=== PATIENT | female | born 2000 | race Caucasian/White ===

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

== ENCOUNTER 2022-05-01 19:30 | Emergency (ER) | payer BC, OTHER ==
[2022-05-01 19:39] VITALS: BP 101/64; PULSE 89; RESP 18; TEMP 98.9; BMI 20.5
== END 2022-05-01 21:10 | disposition home or self-care (01) ==
LOC: FER 19:30
DX: B34.9 Viral infection, unspecified (principal)
CPT/HCPCS: 0241U-QW; 99283-25

== ENCOUNTER 2022-07-26 19:58 | Day surgery (SDC) | payer BC ==
[2022-07-26 21:41] LABS: EPI CELLS 9 /uL (0-25.1); HYALINE CASTS 1 /uL (0-3.1); PH,URINE 5.5 (5.0-8.0); URINE APPEARANCE CLEAR; URINE BACTERIA 201 /uL (0-1359); URINE BILIRUBIN NEGATIVE (NEGATIVE); URINE COLOR YELLOW; URINE GLUCOSE (UA) NEGATIVE (NEGATIVE); URINE KETONE 1+ (NEGATIVE); URINE LEUK ESTERASE 1+ (NEGATIVE); URINE NITRITE NEGATIVE (NEGATIVE); URINE PROTEIN 1+ (NEGATIVE); URINE RBC 1015 /uL (0-23.9); URINE UROBILINOGEN 0.2 mg/dL (0.2-1.0); URINE WBC 430 /uL (0-25.8)
[2022-07-26 21:46] LABS: BASO % 0.6 % (0-2.0); EOS % 0.5 % (0-4.5); HEMOGLOBIN 13.1 GM/dL (10.7-15.3); LYMPH % 20.4 % (8-40); MCH 28.1 pg (25.7-33.7); MCHC 32.9 g/dl (32.0-36.0); MEAN CELL VOLUME 85.4 fl (80-96); MEAN PLT VOLUME 8.7 fl (7.5-11.1); MONO % 5.7 % (3.8-10.2); NEUT % 72.8 % (42.8-82.8); PLATELET COUNT 302 10^3/uL (134-434); RBC 4.68 M/mm3 (3.60-5.2); WHITE BLOOD COUNT 11.3 K/mm3 (4.0-10.0)
[2022-07-26 21:47] LABS: INR 0.98 (0.83-1.09); PROTHROMBIN TIME (PATIENT) 11.4 SEC (9.7-13.0)
[2022-07-26 21:49] LABS: ACTIVATED PTT 29.8 SECONDS (25.2-36.5)
[2022-07-26] MEDS ORDERED: SODIUM CHLORIDE 0.9% 500 ML INFUS.BAG IV ONE (21:55)
[2022-07-26 22:04] LABS: CHLORIDE 104 mmol/L (98-107); SODIUM 137 mmol/L (136-145)
[2022-07-26 22:06] LABS: BLOOD UREA NITROGEN 17.3 mg/dL (7-18); CALCIUM 9.4 mg/dL (8.5-10.1)
[2022-07-26 22:07] LABS: ALBUMIN 4.6 g/dl (3.4-5.0); ANION GAP 8 MMOL/L (8-16); CO2 25 mmol/L (21-32); GLUCOSE,RANDOM 78 mg/dL (74-106)
[2022-07-26] MEDS ORDERED: CEFTRIAXONE 1 GM in DEXTROSE 5%-WATER - 50 ML IVPB ONE (22:07)
[2022-07-26] MEDS ORDERED: CEFTRIAXONE 1 GM/50 ML BAG ONE (22:08)
[2022-07-26 22:10] LABS: CREATININE 0.8 mg/dL (0.55-1.3); SGOT/AST 14 U/L (15-37); SGPT/ALT 21 U/L (13-61)
[2022-07-26 22:11] LABS: BILIRUBIN,TOTAL 0.4 mg/dL (0.2-1)
[2022-07-26 22:12] LABS: TOT PROT 8.3 g/dl (6.4-8.2)
[2022-07-26 22:13] LABS: SYPHILIS W/ RPR CONF NON-REACTIVE (NONREACTIVE)
[2022-07-26 22:13] LABS: ALK PHOS 64 U/L (45-117)
[2022-07-26] MEDS ORDERED: KETOROLAC TROMETHAMINE 30 MG/1 ML VIAL IVPUSH ONE (22:26)
[2022-07-26 22:43] LABS: HIV INTERPRETATION NEGATIVE (NEGATIVE)
[2022-07-27] MEDS: SODIUM CHLORIDE 1,000 ML IV SCH (00:22)
[2022-07-27] MEDS ORDERED: ACETAMINOPHEN 325 MG TABLET (FP) PO PRN (01:32)
[2022-07-27] MEDS ORDERED: ONDANSETRON 4 MG/2 ML VIAL IVPUSH PRN ×2 (01:35→09:13)
[2022-07-27 03:59] VITALS: BMI 20.1
[2022-07-27 08:49] LABS: BASO % 0.9 % (0-2.0); EOS % 1.7 % (0-4.5); HEMATOCRIT 31.8 % (32.4-45.2); HEMOGLOBIN 10.8 GM/dL (10.7-15.3); LYMPH % 26.1 % (8-40); MCH 29.1 pg (25.7-33.7); MCHC 34.1 g/dl (32.0-36.0); MEAN CELL VOLUME 85.3 fl (80-96); MEAN PLT VOLUME 8.8 fl (7.5-11.1); MONO % 7.6 % (3.8-10.2); NEUT % 63.7 % (42.8-82.8); PLATELET COUNT 215 10^3/uL (134-434); RBC 3.73 M/mm3 (3.60-5.2); RDW 13.7 % (11.6-15.6); WHITE BLOOD COUNT 6.9 K/mm3 (4.0-10.0)
[2022-07-27] MEDS ORDERED: PROMETHAZINE HCL 25 MG/1 ML VIAL IVPB PRN (09:13)
[2022-07-27] MEDS ORDERED: BUPIVACAINE HCL/PF 0.5% (5MG/ML) 10 ML VIAL ONE (09:15)
[2022-07-27] MEDS ORDERED: LACTATED RINGERS SOLUTION 1,000 ML IV SCH (09:15)
[2022-07-27 09:18] LABS: CALCIUM 8.2 mg/dL (8.5-10.1)
[2022-07-27 09:19] LABS: BLOOD UREA NITROGEN 12.8 mg/dL (7-18); MAGNESIUM 1.9 mg/dL (1.8-2.4)
[2022-07-27 09:20] LABS: PHOSPHOROUS 3.5 mg/dL (2.5-4.9)
[2022-07-27 09:21] LABS: CREATININE 0.5 mg/dL (0.55-1.3)
[2022-07-27] MEDS ORDERED: ROCURONIUM BROMIDE 50 MG/5 ML SYRINGE ONE (09:21)
[2022-07-27] MEDS ORDERED: MIDAZOLAM HCL 2 MG/2 ML SINGLE DOSE VIAL ONE (09:21)
[2022-07-27] MEDS ORDERED: PROPOFOL 20 ML ONE (09:21)
[2022-07-27] MEDS ORDERED: LIDOCAINE HCL/PF 2% SDV 5ML VIAL ONE (09:22)
[2022-07-27] MEDS ORDERED: GLYCOPYRROLATE 0.2 MG/1 ML VIAL ONE ×2 (09:22→11:11)
[2022-07-27 09:24] LABS: ALBUMIN 3.3 g/dl (3.4-5.0); BILIRUBIN,TOTAL 0.6 mg/dL (0.2-1)
[2022-07-27] MEDS ORDERED: CEFTRIAXONE 1 GM in DEXTROSE 5%-WATER - 50 ML IVPB SCH (10:00)
[2022-07-27] MEDS ORDERED: SODIUM CHLORIDE 0.9% P/F 10 ML VIAL IJ ONE (10:28)
[2022-07-27] MEDS ORDERED: DEXAMETHASONE SOD PHOSPHATE 4 MG/1 ML VIAL ONE (10:30)
[2022-07-27] MEDS ORDERED: ONDANSETRON 4 MG/2 ML VIAL ONE (10:30)
[2022-07-27] MEDS ORDERED: BUPIVACAINE HCL/PF 0.5% (5MG/ML) 10 ML VIAL IJ ONE ×3 (10:45)
[2022-07-27] MEDS ORDERED: KETOROLAC TROMETHAMINE 30 MG/1 ML VIAL ONE (10:54)
[2022-07-27] MEDS ORDERED: ACETAMINOPHEN INJECTION 100 ML IVPB ONE (10:56)
[2022-07-27] MEDS ORDERED: NEOSTIGMINE METHYLSULFATE 0.5 MG/1 ML - 10 ML MDV ONE (11:11)
[2022-07-27] MEDS: CEFTRIAXONE 2 GM in DEXTROSE 5%-WATER 100 ML IVPB SCH (13:35)
[2022-07-27] MEDS: oxyCODONE HCL 5 MG TABLET PO PRN ×2 (14:52→21:19)
[2022-07-27 18:33] LABS: URINE APPEARANCE CLEAR; URINE BILIRUBIN NEGATIVE (NEGATIVE); URINE COLOR YELLOW; URINE GLUCOSE (UA) 3+ (NEGATIVE); URINE KETONE 1+ (NEGATIVE); URINE LEUK ESTERASE NEGATIVE (NEGATIVE); URINE NITRITE NEGATIVE (NEGATIVE); URINE PROTEIN NEGATIVE (NEGATIVE); URINE UROBILINOGEN 0.2 mg/dL (0.2-1.0)
[2022-07-27 19:22] VITALS: RESP 20
[2022-07-28] MEDS: SODIUM CHLORIDE 1,000 ML IV SCH (01:58)
[2022-07-28] MEDS ORDERED: BENZOCAINE/MENTHOL (CHLORASEPTIC ) LOZENGE MM PRN (02:58)
[2022-07-28] MEDS: oxyCODONE HCL 5 MG TABLET PO PRN (07:04)
[2022-07-28 08:26] LABS: BASO % 0.4 % (0-2.0); EOS % 0.2 % (0-4.5); HEMATOCRIT 30.7 % (32.4-45.2); HEMOGLOBIN 10.8 GM/dL (10.7-15.3); LYMPH % 18.4 % (8-40); MCH 30.4 pg (25.7-33.7); MCHC 35.1 g/dl (32.0-36.0); MEAN CELL VOLUME 86.6 fl (80-96); MEAN PLT VOLUME 8.5 fl (7.5-11.1); MONO % 6.5 % (3.8-10.2); NEUT % 74.5 % (42.8-82.8); PLATELET COUNT 234 10^3/uL (134-434); RBC 3.55 M/mm3 (3.60-5.2); RDW 13.6 % (11.6-15.6); WHITE BLOOD COUNT 9.7 K/mm3 (4.0-10.0)
[2022-07-28 08:47] LABS: ALBUMIN 3.3 g/dl (3.4-5.0); BLOOD UREA NITROGEN 9.4 mg/dL (7-18); CALCIUM 8.4 mg/dL (8.5-10.1)
[2022-07-28 08:50] LABS: CREATININE 0.6 mg/dL (0.55-1.3)
[2022-07-28 08:52] LABS: BILIRUBIN,TOTAL 0.3 mg/dL (0.2-1); TOT PROT 5.9 g/dl (6.4-8.2)
[2022-07-28 10:16] VITALS: BP 94/50; PULSE 89; TEMP 98.1
[2022-07-28] MEDS: CEFTRIAXONE 2 GM in DEXTROSE 5%-WATER 100 ML IVPB SCH (10:21)
== END 2022-07-28 12:01 | disposition home or self-care (01) ==
LOC: JER 19:58 → UNDOADMIN 07-27 00:05 → JERBED 07-27 00:05 → J8W 07-27 03:20 → JERBED 07-27 03:20 → JASUSAT 07-27 09:48 → J8W 07-27 10:04 → JASUSAT 07-28 12:01
PROVIDERS: ATTEND Nurse Practitioner Family
PROC: 0DTJ4ZZ Resection of Appendix, Percutaneous Endoscopic Approach (ICD-10-PCS; principal; 2022-07-27 13:30)
DX: K35.80 Unspecified acute appendicitis (principal)
CPT/HCPCS: 0241U-QW; 36415; 74176-TC; 76775-TC; 80053; 81003; 83735; 84100; 84702; 84703; 85025; 85610; 85730; 86780; 86803; 86850; 86900; 86901; 87086; 87389; 87491; 87591; 88304-TC; 93005; 93010; 94010; 94760; 99285-25

== ENCOUNTER 2023-11-25 08:29 | Emergency (ER) | payer BC ==
[2023-11-25 08:50] VITALS: BP 111/68; PULSE 89; RESP 16; TEMP 98.2; BMI 21.6
[2023-11-25 09:38] LABS: HCG,QUALITATIVE URINE Negative
[2023-11-25] MEDS ORDERED: ACETAMINOPHEN 325 MG TABLET (FP) ONE (09:42)
[2023-11-25] MEDS: ACETAMINOPHEN 325 MG TABLET (FP) PO ONE (09:43)
== END 2023-11-25 10:47 | disposition home or self-care (01) ==
LOC: FER 08:29
DX: N39.0 Urinary tract infection, site not specified (principal); R39.15 Urgency of urination; R10.30 Lower abdominal pain, unspecified; R31.9 Hematuria, unspecified; M54.9 Dorsalgia, unspecified
CPT/HCPCS: 81003; 81015; 84703; 87086; 87186; 99283-25

== ENCOUNTER 2024-01-26 23:31 | Emergency (ER) | payer BC ==
[2024-01-26] MEDS: DEXAMETHASONE 4 MG TABLET (FP) PO ONE (23:35)
[2024-01-26] MEDS: diphenhydrAMINE HCL 25 MG CAPSULE (FP) PO ONE (23:35)
[2024-01-26 23:38] VITALS: BP 99/70; PULSE 95; RESP 18; TEMP 98.6; BMI 22.1
[2024-01-26] MEDS: CEPHALEXIN 250 MG/5 ML ORAL SUSPENSION PO ONE (23:39)
[2024-01-26] MEDS: FAMOTIDINE 20 MG TABLET PO ONE (23:39)
== END 2024-01-26 23:46 | disposition home or self-care (01) ==
LOC: FER 23:31
DX: L50.0 Allergic urticaria (principal); R09.89 Other specified symptoms and signs involving the circulatory and respiratory systems; T37.0X5A Adverse effect of sulfonamides, initial encounter
CPT/HCPCS: 99283-25